=== PATIENT | male | born 1990 | race Caucasian/White ===

== ENCOUNTER 2022-04-28 07:55 | Emergency (ER) | payer OTHER, BC ==
[~2022-04-28] VITALS: Ht 180.3 cm; Wt 113.6 kg
[2022-04-28 10:33] VITALS: BP 135/78
== END 2022-04-28 10:36 | disposition home or self-care (01) | DRG 563 ==
LOC: ED 07:55
DX: S93.401A Sprain of unspecified ligament of right ankle, initial encounter (principal); X50.0XXA Overexertion from strenuous movement or load, initial encounter; Y93.89 Activity, other specified; Y92.89 Other specified places as the place of occurrence of the external cause; Y99.0 Civilian activity done for income or pay